=== PATIENT | female | born 1980 | race Two or more races ===

== ENCOUNTER → 2019-09-14 | Emergency (ER) | payer MEDICAID ==
[~2019-09-14] VITALS: Ht 162.6 cm; Wt 79.8 kg
[~2019-09-14] MED LIST: LORazepam 0.5 MG TAB PO ONE
[2019-09-14 02:16] VITALS: BP 155/103
== END | disposition home or self-care (01) ==
LOC: EDBD 01:59 → ER 02:04
DX: R41.82 Altered mental status, unspecified (principal)
CPT/HCPCS: 71045; 93005